=== PATIENT | female | born 1990 | race Caucasian/White ===

== ENCOUNTER 2017-11-15 22:26 | Inpatient (IN) | payer BC, OTHER ==
[2017-11-15 22:50] VITALS: BMI 28.3
[2017-11-16] MEDS ORDERED: Ondansetron ODT 8 MG TAB SL PRN (02:28)
--- NOTE | 2017-11-16 06:29 | PRG ---
DATE OF SERVICE: 11/15/2017 PRIMARY OB: Dr. Karla Robertson CHIEF COMPLAINT: Abdominal pains. HISTORY OF PRESENT ILLNESS: The patient is a 26-year-old female with an intrauterine at 38 weeks and 5 days who is presenting to Labor and Delivery with increasing abdominal pains. The patient reports contractions about every 5-6 minutes. She denies any leakage of fluid or vaginal bl eeding, any falls or fever. PAST MEDICAL HISTORY: Negative. PAST SURGICAL HISTORY: She has had a D&C. SOCIAL HISTORY: Denies drug, alcohol or tobacco use. ALLERGIES: HYDROCODONE. MEDICATIONS: Diclegis and vitamins. OB LABS: Blood type is A positive, antibody screen is negative. HIV is nonreactive. RPR is nonreac tive. Hepatitis B surface antigen is nonreactive. Her one hour Glucola is 85. REVIEW OF SYSTEMS: Per HPI. PHYSICAL EXAMINATION: VITAL SIGNS: Blood pressure 131/79, heart rate of 85, respiratory rate of 20, temperature 97.7. GENERAL: She appears to be in no acute distress. She is alert and oriented, and cooperative and ple asant to interact with. HEENT: Normocephalic, atraumatic. LUNGS: Clear to auscultation bilaterally. HEART: Regular rate and rhythm. ABDOMEN: Gravid and soft in between contractions. EXTREMITIES: Nontender, nonedematous. CERVICAL EXAM: Per nursing staff she is 3, 80, -2 station, which after 4 hours is unchanged. heart tracing performed for approximately 3-1/2 hours, baseline is noted to be in the 120s with moderate long-term variability, positive accelerations, no decelerations. She was patricia about every 2-3 minutes. ASSESSMENT AND PLAN: The patient is a 26-year-old female with an intrauterine at 38 weeks and 5 days who is presenting in latent labor. She is unchanged after 4 hours; however, the pat ient reports her contractions are getting worse. The patient lives about 1 hour from here. We have treated her with Stadol and Zofran and will expectantly manage her until morning and will at that radha e reevaluate. Dr. Robertson will be notified also.
[2017-11-16] MEDS ORDERED: Lidocaine 1% (PF) 30 ML VIAL SC PRN (07:14)
[2017-11-16] MEDS ORDERED: Ondansetron HCl/PF 4 MG/2 ML Vial IVP PRN ×3 (07:14→14:21)
[2017-11-16] MEDS ORDERED: Ibuprofen 800 MG TAB PO PRN (07:14)
[2017-11-16] MEDS ORDERED: Lactated Ringer's 1,000 ML IV SCH (07:15)
[2017-11-16] MEDS: Lactated Ringer's 1,000 ML IV SCH ×2 (07:35→09:01)
[2017-11-16] MEDS ORDERED: Fentanyl 4 mcg/Marc 0.1% Cadd 100 ML ONE (07:58)
[2017-11-16 07:59] LABS: Hemoglobin 12.8 g/dL (12.0-16.0); Mean Corpuscular HGB CONC 34.9 g/dL (32.0-36.0); Mean Corpuscular Hemoglobin 32.6 pg (27.0-31.0); Mean Corpuscular Volume 93.2 fl (81.0-99.0); Platelet Count 210 thou/uL (130-400); RBC Distribution Width 11.5 % (11.5-14.5); Red Blood Cell (RBC) Count 3.93 mill/uL (4.20-5.40); White Blood Cell (WBC) Count 16.5 thou/uL (4.8-10.8)
[2017-11-16] MEDS ORDERED: Naloxone HCl 0.4 mg/ml Vial IVP PRN ×2 (08:09)
[2017-11-16] MEDS ORDERED: ePHEDrine/0.9% NaCl/PF SYRINGE 50 mg/10 ml SLOW IVP PRN (08:09)
[2017-11-16] MEDS ORDERED: diphenhydrAMINE 50 MG/ML VIAL IVP PRN (08:09)
[2017-11-16] MEDS ORDERED: Lactated Ringer's 500 ML IV PRN (08:09)
[2017-11-16] MEDS ORDERED: Promethazine HCl 25 MG/ML VIAL IM PRN (08:09)
[2017-11-16] MEDS ORDERED: Acetaminophen 325 MG TAB PO PRN (08:09)
[2017-11-16] MEDS ORDERED: Eucerin (Mineral Oil/Petrolatum,White) 30 gm Jar TOP PRN (08:09)
[2017-11-16] MEDS ORDERED: Communication Order-Pharmacy FS SCH (08:15)
[2017-11-16] MEDS ORDERED: Fentanyl 4mcg/Marcaine 0.1% Cassette 100 ML EPIDURAL SCH (08:15)
[2017-11-16 08:31] LABS: HBSAg Index 0.22 S/CO (0-0.99); Hep B Surf Ag Non-Reactive S/CO (NonReactive)
[2017-11-16 08:40] LABS: Syphilis Antibody Nonreactive (Nonreactive); Syphilis Antibody Index 0.07 S/CO (<1.00 Non-Reactive)
--- NOTE | 2017-11-16 10:33 | PDOC.LDHP ---
Labor and Delivery H&P Chief complaint: contractions HPI: 26yo at 38w5d by LMP with contractions, SVE change from 3-->5cm. Good FM. No LOF VB. Current gestational age (weeks): 38 Due date: 11/26/17 Dating criteria: last menstrual period Grav: 3 Para: 1 Current complications: none Abnormal US findings: No Past Medical History: denies Current medications: pre- vitamins Previous surgical history: dilation and curettage Allergies/Adverse Reactions: Allergies Allergy/AdvReac Type Severity Reaction Status Date / Time codeine Allergy Verified 01/15/16 08:46 Social history: none - Physical Exam Vital signs reviewed and normal: yes General: NAD Heart: RRR Lungs: CTAB Abdomen: gravid Extremeties: no edema FHT: category 1 [place] contractions every: q2-3min - Vaginal Exam cm dilated: 6 Effacement: 90% Station: -1 (arom clear) - OB Labs Blood type: A RH: positive Antibody Screen: negative HIV: negative RPR: negative HEPSAg: negative 1 hour GCT: negative GBS: negative Rubella: immune - Assessment L&D Assessment: term patient in labor - Plan Plan: admit to L&D, labor augmentation if indicated, informed consent obtained, anesthesia consult for pain management
[2017-11-16] MEDS: LR / Pitocin 40 units/1000 ml 1,000 ML IV PRN ×2 (13:00→14:17)
--- NOTE | 2017-11-16 13:12 | PDOC.OPDEL ---
OB Operative/Delivery Note Delivery Dr/Surgeon: Ailyn Assist: Anna [id number] Pre-Delivery Diagnosis: active labor Procedure/Post Delivery Dx: spontaneous vaginal delivery Weeks gestation: 38 Anesthesia: epidural - Findings A - 1 min: 8 - 5 min: 9 - Additional Findings/Plan Placenta delivered: spontaneous Estimated blood loss: 400 Post delivery plan: routine recovery
[2017-11-16] MEDS ORDERED: Benzocaine/Menthol 20-0.5% 60 ML CAN TOP PRN (14:21)
[2017-11-16] MEDS ORDERED: diphenhydrAMINE 25 MG CAP PO PRN (14:21)
[2017-11-16] MEDS ORDERED: Lanolin Ointment 7 GM TUBE TOP PRN (14:21)
[2017-11-16] MEDS ORDERED: Preparation H Ointment 28 GM TUBE PR PRN (14:21)
[2017-11-16] MEDS ORDERED: Bisacodyl 10 MG SUPP PR PRN (14:21)
[2017-11-16] MEDS ORDERED: Milk Of Magnesia 30 ML UDCUP PO PRN (14:21)
[2017-11-16] MEDS ORDERED: traMADol HCl 50 MG TAB PO PRN ×2 (14:21)
[2017-11-16] MEDS ORDERED: LR / Pitocin 40 units/1000 ml 1,000 ML IV SCH (14:21)
[2017-11-16] MEDS ORDERED: Metoclopramide HCl 10 MG/2 ML VIAL IVP SCH (15:45)
[2017-11-16] MEDS ORDERED: Metoclopramide HCl 10 MG/2 ML VIAL IVP PRN (20:33)
[2017-11-16] MEDS ORDERED: Metoclopramide HCl 10 MG TAB PO PRN (20:34)
[2017-11-16] MEDS: Ferrous Sulfate 325 MG TAB PO SCH (20:39)
[2017-11-16] MEDS: Docusate Calcium (SURFAK) 240 MG CAP PO SCH (20:39)
[2017-11-16] MEDS: Ibuprofen 800 MG TAB PO SCH ×2 (20:39→23:22)
--- NOTE | 2017-11-17 07:09 | PDOC.PP ---
Post Progress Note Post Day #: 1 PO intake tolerated: yes Flatus: yes Ambulation: yes Vital Signs (12 hours) Temp Pulse Resp BP 11/17/17 04:00 98.3 F 81 16 111/71 11/16/17 23:48 97.8 F 91 16 126/73 11/16/17 20:00 98.9 F 97 16 11/16/17 19:30 98.9 F 97 16 130/67 Weight Weight 165 lb - Physical Examination General: NAD Cardiovascular: RRR Respiratory: non-labored breathing Abdominal: no distention, appropriately TTP Fundus firm & at: umb Neurological: no gross focal deficits Psychiatric: normal affect Result Diagrams: 11/16/17 07:35 Additional Labs: Post Labs Hep Bs Antigen Non-Reactive S/CO (NonReactive) 11/16/17 07:35 (1) Term delivered Code(s): O80 - ENCOUNTER FOR FULL-TERM UNCOMPLICATED DELIVERY Status: Acute - Assessment/Plan VSSAF Doing well , lochia < menses Rh pos RImm DC home FU 6w
[2017-11-17] MEDS: Docusate Calcium (SURFAK) 240 MG CAP PO SCH (08:26)
[2017-11-17] MEDS: Ibuprofen 800 MG TAB PO SCH ×2 (08:26→12:27)
[2017-11-17] MEDS ORDERED: Bupivacaine/Epinephrine 0.25% 30 ML VIAL ONE (08:49)
[2017-11-17] MEDS ORDERED: Prenatal Vitamin 1 TAB PO SCH (09:00)
[2017-11-17 11:51] VITALS: BP 120/70; TEMP 97.7
[2017-11-17] MEDS: Ferrous Sulfate 325 MG TAB PO SCH (12:27)
== END 2017-11-17 15:15 | disposition home or self-care (01) | DRG 775 ==
LOC: L&D/OP 22:26 → L&D 11-16 07:10 → 3SW 11-16 16:19
PROVIDERS: ADMIT Student in an Organized Health Care Education/Training Program; ATTEND Student in an Organized Health Care Education/Training Program
PROC: 10E0XZZ Delivery of Products of Conception, External Approach (ICD-10-PCS; principal; 2017-11-16)
PROC: 10907ZC Drainage of Amniotic Fluid, Therapeutic from Products of Conception, Via Natural or Artificial Opening (ICD-10-PCS; 2017-11-16)
DX: O80 Encounter for full-term uncomplicated delivery (principal); Z37.0 Single live birth; Z3A.38 38 weeks gestation of pregnancy
CPT/HCPCS: 51702; 85027; 86780; 87340; 99285; J0595; J2001; J2405; J2765

== ENCOUNTER 2020-10-05 12:36 | Outpatient (CLI) | payer OTHER ==
[2020-10-05 22:27] LABS: SARS-CoV-2 MS2 Positive; SARS-CoV-2 N Gene Negative; SARS-CoV-2 S Gene Negative; SARS-CoV-2 by NAA Not Detected (NotDetected); SARS-CoV-2 orf1ab Negative
== END 2020-10-05 12:37 | disposition home or self-care (01) ==
LOC: LABBT 12:36
PROVIDERS: ATTEND Student in an Organized Health Care Education/Training Program
DX: Z01.812 Encounter for preprocedural laboratory examination (principal); Z20.828 Contact with and (suspected) exposure to other viral communicable diseases
CPT/HCPCS: 87635; U0003

== ENCOUNTER 2020-10-07 06:48 | Inpatient (IN) | payer OTHER ==
[2020-10-07] MEDS ORDERED: Lactated Ringer's 1,000 ML IV SCH (08:08)
[2020-10-07] MEDS ORDERED: HYDROcodone/Acetaminophen 5/325 mg Tablet PO PRN ×4 (08:08→17:53)
[2020-10-07] MEDS ORDERED: Ibuprofen 800 MG TAB PO PRN (08:08)
[2020-10-07] MEDS ORDERED: Lidocaine 1% (PF) 30 ML VIAL SC PRN (08:08)
[2020-10-07] MEDS ORDERED: hydrALAZINE 20 MG/ML VIAL SLOW IVP PRN ×2 (08:08→17:53)
[2020-10-07] MEDS ORDERED: NS w/ Oxytocin 10 units 500 ML IV SCH (08:08)
[2020-10-07] MEDS ORDERED: Promethazine HCl 25 MG/ML VIAL IM PRN ×4 (08:08→17:53)
[2020-10-07] MEDS ORDERED: Hydrocerin (Eucerin) Cream 120 gm Jar TOP PRN (08:15)
[2020-10-07] MEDS ORDERED: Acetaminophen 325 MG TAB PO PRN ×2 (08:15→09:43)
[2020-10-07] MEDS ORDERED: Naloxone HCl 0.4 mg/ml Vial IV PRN ×2 (08:15)
[2020-10-07] MEDS ORDERED: diphenhydrAMINE 50 MG/ML VIAL IVP PRN ×2 (08:15→09:43)
[2020-10-07] MEDS ORDERED: Fentanyl 100 MCG/2 ML VIAL SLOW IVP PRN (08:15)
[2020-10-07] MEDS ORDERED: Fentanyl 4 mcg/Bup 0.1% Cadd 100 ML in Premix Bag 1 BAG EPIDURAL SCH (08:15)
[2020-10-07] MEDS ORDERED: Lactated Ringer's 500 ML IV PRN ×2 (08:15→09:43)
[2020-10-07] MEDS ORDERED: Ondansetron PF 4 MG/2 ML Vial IVP PRN ×3 (08:15→17:53)
[2020-10-07] MEDS ORDERED: ePHEDrine/0.9% NaCl/PF SYRINGE 50 mg/10 ml IV PRN (08:15)
[2020-10-07 08:35] LABS: Hemoglobin 12.9 g/dL (12.0-16.0); Mean Corpuscular HGB CONC 34.2 g/dL (32.0-36.0); Mean Corpuscular Hemoglobin 31.6 pg (27.0-31.0); Mean Corpuscular Volume 92.3 fL (78.0-98.0); Platelet Count 213 thou/uL (130-400); RBC Distribution Width 11.7 % (11.5-14.5); White Blood Cell (WBC) Count 16.3 thou/uL (4.8-10.8)
[2020-10-07 08:58] VITALS: BMI 27.9
[2020-10-07] MEDS ORDERED: FLU VACC QS2020-21(6MOS UP)/PF 60 MCG/0.5 ML SYRINGE IM ONE (09:00)
[2020-10-07] MEDS: Lactated Ringer's 1,000 ML IV SCH ×2 (09:11→10:33)
[2020-10-07 09:14] LABS: Syphilis Antibody Nonreactive (Nonreactive); Syphilis Antibody Index 0.05 S/CO (<1.00 Non-Reactive)
[2020-10-07 09:15] LABS: HBSAg Index 0.12 S/CO (0-0.99); Hep B Surf Ag Non-Reactive S/CO (NonReactive)
[2020-10-07] MEDS: Ondansetron PF 4 MG/2 ML Vial IVP PRN ×2 (09:20→16:39)
[2020-10-07] MEDS ORDERED: Naloxone HCl 0.4 mg/ml Vial IVP PRN ×2 (09:43)
[2020-10-07] MEDS ORDERED: ePHEDrine 50 MG/ML VIAL SLOW IVP PRN (09:43)
[2020-10-07] MEDS ORDERED: Communication Order-Pharmacy FS SCH (09:45)
[2020-10-07] MEDS ORDERED: Fentanyl 4 mcg/Bupivacaine 0.1% Cassette 100 ML EPIDURAL SCH (09:45)
--- NOTE | 2020-10-07 12:54 | PDOC.EVN ---
Event Note - Event Note Event Note: Asked to AROM. comfortable with epidural. SVE /0, -1 vtx. AROM- clear. FHTs stable. [facility] regular. Dr. Robertson notified.
[2020-10-07] MEDS ORDERED: Bupivacaine/Epinephrine 0.25% 30 ML VIAL ONE (13:14)
[2020-10-07] MEDS ORDERED: ePHEDrine 50 MG/ML VIAL ONE (13:14)
[2020-10-07] MEDS: NS / Oxytocin 40 units/1000ml 1,000 ML IV PRN ×2 (15:17→17:59)
--- NOTE | 2020-10-07 17:12 | PDOC.LDHP ---
Labor and Delivery H&P Chief complaint: contractions HPI: 29yo P4P2 at 39w3d here with painful ctx since 0100. Current gestational age (weeks): 39 Due date: 10/11/20 Dating criteria: other Grav: 4 Para: 2 Current complications: none Abnormal US findings: No Past Medical History: denies Current medications: pre- vitamins Previous surgical history: dilation and curettage Allergies/Adverse Reactions: Allergies Allergy/AdvReac Type Severity Reaction Status Date / Time butorphanol [From Stadol] Allergy Verified 10/07/20 08:50 codeine Allergy Verified 01/21/20 03:45 Social history: none - Physical Exam Vital signs reviewed and normal: yes General: NAD Heart: RRR Lungs: CTAB Abdomen: gravid Extremeties: no edema FHT: category 1 [place] contractions every: 2-3min - Vaginal Exam cm dilated: 10 Effacement: 100% Station: 1+ - OB Labs Blood type: A RH: positive Antibody Screen: negative HIV: negative RPR: negative HEPSAg: negative 1 hour GCT: negative GBS: negative Urine drug screen: negative Rubella: immune Additional Labs: covid neg - Assessment L&D Assessment: term patient in labor - Plan Plan: admit to L&D, labor augmentation if indicated, informed consent obtained, anesthesia consult for pain management
--- NOTE | 2020-10-07 17:13 | PDOC.OPDEL ---
OB Operative/Delivery Note Delivery Dr/Surgeon: Ailyn Assist: n/a Pre-Delivery Diagnosis: active labor Procedure/Post Delivery Dx: spontaneous vaginal delivery Weeks gestation: 39 Anesthesia: epidural - Findings A Sex: female - 1 min: 8 - 5 min: 9 - Additional Findings/Plan Placenta delivered: spontaneous Estimated blood loss: 75cc Post delivery plan: routine recovery
[2020-10-07] MEDS ORDERED: Milk Of Magnesia 30 ML UDCUP PO PRN (17:53)
[2020-10-07] MEDS ORDERED: Benzocaine-Menthol 82.5 ML CAN TOP PRN (17:53)
[2020-10-07] MEDS ORDERED: diphenhydrAMINE 25 MG CAP PO PRN (17:53)
[2020-10-07] MEDS ORDERED: Lanolin Ointment 7 GM TUBE TOP PRN (17:53)
[2020-10-07] MEDS ORDERED: Preparation H Ointment 28 GM TUBE PR PRN (17:53)
[2020-10-07] MEDS ORDERED: Bisacodyl 10 MG SUPP PR PRN (17:53)
[2020-10-07] MEDS ORDERED: NS / Oxytocin 40 units/1000ml 1,000 ML IV SCH (18:00)
[2020-10-07] MEDS: Docusate Calcium (SURFAK) 240 MG CAP PO SCH (21:41)
[2020-10-07] MEDS: Ibuprofen 800 MG TAB PO SCH (21:41)
[2020-10-08] MEDS: Ibuprofen 800 MG TAB PO SCH ×2 (05:05→13:21)
[2020-10-08] MEDS: Docusate Calcium (SURFAK) 240 MG CAP PO SCH (07:53)
[2020-10-08] MEDS ORDERED: Ferrous Sulfate 325 MG TAB PO SCH (08:00)
[2020-10-08] MEDS ORDERED: Adacel (T-DAP) 0.5 ML SYRINGE IM ONE (09:00)
[2020-10-08] MEDS ORDERED: Prenatal Vitamin 1 TAB PO SCH (09:00)
[2020-10-08 11:57] VITALS: BP 98/55; TEMP 97.8
--- NOTE | 2020-10-08 14:25 | PDOC.PP ---
Post Progress Note Post Day #: 1 PO intake tolerated: yes Flatus: yes Ambulation: yes Vital Signs (12 hours) Temp Pulse Resp BP Pulse Ox 10/08/20 11:56 97.8 F 83 20 98/55 L 10/08/20 08:06 97.9 F 85 20 104/57 L 98 10/08/20 05:00 97.9 F 76 18 109/59 L Weight Weight 163 lb - Physical Examination General: NAD Respiratory: non-labored breathing Abdominal: no distention, appropriately TTP Neurological: no gross focal deficits Psychiatric: normal affect Result Diagrams: 10/07/20 08:23 Additional Labs: Post Labs Hep Bs Antigen Non-Reactive S/CO (NonReactive) 10/07/20 08:23 Blood Type A POSITIVE 10/07/20 08:23 - Assessment/Plan PPD1 s/p TSVD VSSAF Doing well, pain controlled Rh pos RImm DC home FU 6w
== END 2020-10-08 18:10 | disposition home or self-care (01) | DRG 807 ==
LOC: L&D/OP 06:48 → L&D 08:08 → 3SW 18:16
PROVIDERS: ADMIT Obstetrics & Gynecology; ATTEND Student in an Organized Health Care Education/Training Program
PROC: 10E0XZZ Delivery of Products of Conception, External Approach (ICD-10-PCS; principal; 2020-10-07)
PROC: 10907ZC Drainage of Amniotic Fluid, Therapeutic from Products of Conception, Via Natural or Artificial Opening (ICD-10-PCS; 2020-10-07)
DX: O80 Encounter for full-term uncomplicated delivery (principal); Z37.0 Single live birth; Z3A.39 39 weeks gestation of pregnancy
CPT/HCPCS: 36415; 51702; 85027; 86780; 86850; 86900; 86901; 87340; 87635; 99285; J2405; J3490; U0003